=== PATIENT | male | born 1950 | race Caucasian/White ===

== ENCOUNTER → 2018-03-08 | Outpatient (REF) | payer OTHER ==
[2018-03-08 16:33] LABS: ALBUMIN/GLOBULIN RATIO 1.18 (1.00-1.93); ALKALINE PHOSPHATASE 75 U/L (45-117); ALT/SGPT 28 U/L (12-78); AST/SGOT 19 U/L (7-37); BILIRUBIN,DIRECT 0.1 MG/DL (0.0-0.2); BILIRUBIN,TOTAL 0.6 MG/DL (0.2-1.0); BLOOD UREA NITROGEN 12 MG/DL (7-18); CREATININE FOR GFR 0.87 MG/DL (0.70-1.30); GLOMERULAR FILTRATION RATE > 60.0 (>49); TOTAL PROTEIN 7.4 GM/DL (6.4-8.2)
== END ==
LOC: M LABDRAW1 12:22
DX: M48.061 Spinal stenosis, lumbar region without neurogenic claudication (principal)
CPT/HCPCS: 82565

== ENCOUNTER → 2018-09-30 | Outpatient (REF) | payer OTHER, MEDICARE ==
[~2018-09-30] MED LIST: /CELE20CA PO; CARI350T OR; LIDO5DIS EXT; TRAM50TA2 OR; hydrocodone PO
[2018-09-30 19:10] LABS: BLOOD UREA NITROGEN 14 MG/DL (7-18); CREATININE FOR GFR 0.94 MG/DL (0.70-1.30); GLOMERULAR FILTRATION RATE > 60.0 (>49)
== END ==
LOC: M LABDRAW1 17:19
PROVIDERS: ATTEND Physical Medicine & Rehabilitation
DX: M51.27 Other intervertebral disc displacement, lumbosacral region (principal)

== ENCOUNTER 2020-07-16 23:22 | Emergency (ER) | payer MEDICARE, OTHER ==
[~2020-07-16] VITALS: Ht 177.8 cm; Wt 102.0 kg
[~2020-07-16 23:22] MED LIST changes: -/CELE20CA PO; +CELE1CAP4 PO
[2020-07-16 23:26] VITALS: BP 137/73
[2020-07-16] MEDS ORDERED: PRAV40TA2 PO (23:38)
[2020-07-16] MEDS ORDERED: LISI-538 PO (23:38)
[2020-07-17] MEDS ORDERED: NS 1,000 ML IV ONE (00:15)
[2020-07-17 00:46] LABS: BASO % 0.3 % (0.0-1.0); EOS # 0.1 10^3/uL (0.0-0.5); EOS % 0.6 % (0.0-3.0); HEMATOCRIT 38.3 % (42.0-52.0); LYMPH # 1.1 10^3/uL (1.5-5.0); LYMPH % 12.2 % (24.0-44.0); MEAN CORPUSCULAR HEMOGLOBIN 31.3 pg (27.0-33.0); MEAN CORPUSCULAR HGB CONC 33.9 g/dl (32.0-36.5); MEAN CORPUSCULAR VOLUME 92.3 fl (80.0-96.0); MONO # 0.6 10^3/uL (0.0-0.8); MONO % 6.7 % (0.0-5.0); NEUTROPHILS % 79.2 % (36.0-66.0); PLATELET COUNT, AUTOMATED 183 10^3/uL (150-450); RED BLOOD COUNT 4.15 10^6/uL (4.30-6.10); WHITE BLOOD COUNT 8.9 10^3/uL (4.0-10.0)
[2020-07-17 01:03] LABS: ALBUMIN 3.5 GM/DL (3.2-5.2); ALT/SGPT 22 U/L (12-78); BILIRUBIN,DIRECT < 0.1 MG/DL (0.0-0.2); BILIRUBIN,TOTAL 0.2 MG/DL (0.2-1.0); BLOOD UREA NITROGEN 19 MG/DL (7-18); CALCIUM LEVEL 8.6 MG/DL (8.8-10.2); CARBON DIOXIDE LEVEL 25 MEQ/L (21-32); CHLORIDE LEVEL 103 MEQ/L (98-107); CPK CREATINE PHOSPHOKINASE 113 U/L (39-308); CREATININE FOR GFR 1.17 MG/DL (0.70-1.30); FREE THYROXINE INDEX 3.5 % (1.4-3.8); GLOMERULAR FILTRATION RATE > 60.0 (>49); GLUCOSE, FASTING 121 MG/DL (70-100); POTASSIUM SERUM 3.9 MEQ/L (3.5-5.1); SODIUM LEVEL 138 MEQ/L (136-145); T UPTAKE 38 % (33-40); THYROXINE (T4) 9.1 UG/DL (4.5-12.0); TOTAL PROTEIN 6.5 GM/DL (6.4-8.2)
--- NOTE | 2020-07-17 01:31 | REPVR ---
PROCEDURE INFORMATION: Exam: CT Head without Contrast Exam date and time: 07/17/20 (1:00am) Age: 70 years old Clinical indication: Altered mental status / memory loss. Confusion or disorientation. TECHNIQUE: Imaging protocol: Computed tomography of the head without contrast. Radiation optimization: All CT scans at this facility use at least one of these dose optimization techniques: automated exposure control; mA and/or kV adjustment per patient size (includes targeted exams where dose is matched to clinical indication); or iterative reconstruction. COMPARISON: No relevant prior studies available FINDINGS: Brain: Age-appropriate atrophic changes. No acute hemorrhage. No mass effect. Ventricles: Normal. No ventriculomegaly. Bones/joints: Unremarkable. No acute fracture. Sinuses: Visualized sinuses are unremarkable. No air-fluid levels. Mastoid air cells: Visualized mastoid air cells are well aerated. Soft tissues: Unremarkable. IMPRESSION: No acute intracranial pathology is appreciated. Electronically signed by: Violette De Guzman On 07/17/2020 01:30:38 AM
--- NOTE | 2020-07-29 13:42 | ECGEPIP ---
[facility] - ED Test Date: 2020-07-16 Pat Name: SRIKANTH LOPEZ Department: Room: - Gender: Male [employer] Sep[employer] Tender: CELINE : 1950 Requested By: ANDREAS BENSON Order Number: [id number] Reading MD: Chana Mccann Measurements Intervals Ozone Rate: 70 P: 45 MT: 167 QRS: 56 QRSD: 99 T: 54 QT: 405 QTc: 437 Interpretive Statements SINUS RHYTHM NORMAL ECG SEE SCANNED DOWNTIME REPORT
== END 2020-07-17 04:11 | disposition home or self-care (01) ==
LOC: M ED 23:22
DX: E86.0 Dehydration (principal); I10 Essential (primary) hypertension; G89.29 Other chronic pain; M54.9 Dorsalgia, unspecified; Z79.899 Other long term (current) drug therapy

== ENCOUNTER → 2021-09-10 | Outpatient (CLI) | payer MEDICARE, OTHER ==
[~2021-09-10] MED LIST changes: +LISI20TA33 PO; +PRAV40TA2 PO
== END ==
LOC: M LABSMTC 10:43
PROVIDERS: ATTEND Anesthesiology
DX: Z01.812 Encounter for preprocedural laboratory examination (principal); Z20.822 Contact with and (suspected) exposure to COVID-19

== ENCOUNTER 2021-09-15 07:57 | Day surgery (SDC) | payer MEDICARE ==
[~2021-09-15] VITALS: Ht 177.8 cm; Wt 101.7 kg
[~2021-09-15 07:57] MED LIST changes: +CYCLOPENTOLATE 1% OPHTH SOLN 2 ML BTL OD SCH; +DUOVISC (0.50ML VISCOAT/0.85ML PROVISC) OPHTH KIT As Ordered ONE; +FLURBIPROFEN 0.03% OPHTH SOLN 2.5 ML OD SCH; +LIDOCAINE 1% SDV 5ML VIAL As Ordered ONE; +LR 1,000 ML IV SCH; +MAXITROL OPHTH SUSP 5 ML As Ordered ONE; +MIDAZOLAM INJ 2MG/2ML VIAL (J2250 PER 1MG) As Ordered ONE; +PHENYLEPHRINE 2.5% OPHTH SOL 2ML OD SCH; +UNRESOLVED CLARIFICATION ENTRY XX SCH; +fentaNYL 100 MCG/2 ML INJECTION (J3010) As Ordered ONE
--- OUTSIDE RECORDS SUMMARY | 2021-09-15 08:01 | CCD ---
Author Author [facility] Organization [facility] Address Unknown Phone Unavailable Care Team Providers Care Manager Local Name Role Phone Sharon Lui Unavailable PROBLEMS Type Condition ICD9-CM Code [id number] Code Onset Dates Condition S tatus W/U Status Risk SNOMED Code Notes Problem Essential (primary) hypertension I10 Active conf irmed 61942514 Problem Mixed hyperlipidemia E78.2 Active confirmed 812714946 Problem Hypogonadism in male E29.1 Active confirmed 67838936 Problem Hyperlipidemia E78.5 Active confirmed 63065 004 Problem Erectile dysfunction, unspecified erectile dysfunction typ e N52.9 Active confirmed 271845946 Problem Obesity (BMI 30.0-34.9) E66.9 Active confirmed [id number] Problem Hypertension I10 Active confirmed 9456279 3 Problem History of prediabetes Z87.898 Active confirmed 183245676 Problem Essential hypertension I10 Active confirmed 81347107 Problem BMI 30.0-30.9,adult Z68.30 Active confirmed 691438456 Problem Lumbago with sciatica, right side M54.41 Active confirmed 601909301 Problem Pain in left shoulder M25.512 Active confirmed 65602028 Problem Other chronic pain G89.29 Active confirmed 8 7062201 Problem Personal history of other endocrine, nut ritional and metabolic disease Z86.39 Active confirmed 529293967 Problem Age-related nuclear cataract of right eye H25.11 Active confirmed 108332084 ALLERGIES No Known Allergies ENCOUNTERS from 1950 to 2021-08-28 Encounter Location Date Provider Diagnosis [address] [address] Aug, Sharon Lui Preoperative clearance Z01.8 18 ; Age-related nuclear cataract of right eye H25.11 ; Hypertension I10 ; History of prediabetes Z87.898 ; Mixed hyperlipidemia E78.2 ; Obesity (BMI 30.0-34.9) E66.9 and BMI 30.0- 30.9,adult Z68.30 IMMUNIZATIONS No Information SOCIAL HISTORY Tobacco Use: Social History Observation Description Date Details (start date - stop date) Never Smoker Sex Assigned At : Social History Observation Description Sex Assigned At Unknown Alcohol Screen Question Answer Notes Did you have a drink containing alcohol in the past year? Ye s Points 4 Interpretation Positive How often did you have 6 or more drinks on one occasio n in the past year? Never (0 points) How many drinks did you have on a typica l day when you were drinking in the past year? 1 or 2 (0 points) How often did you have a drink containing alcohol in t he past year? Four or more times a week (4 points) Tobacco Use/Smoking Question Answer Notes Are you a never smoker REASON FOR REFERRAL No Information VITAL SIGNS Height 72 in Aug, Weight 224 lbs Aug, BMI 30.38 kg/m2 Aug, Temperature 98.2 degrees Fahrenheit Aug, Heart Rate 73 /min Aug, Respiratory Rate 18 /min Aug, Oximetry 98 % Aug, Blood pressure systolic 116 mmHg Aug, Blood pressure diastolic 68 mmHg Aug, MEDICATIONS Medication SIG (Take, Route, Frequency, Duration) Notes Start Da te End Date Status Lisinopril 20 MG 1 tablet Orally Once a day for 90 Active Viagra 100 MG 1 tablet as needed Orally Once a day for 30 days prn Jan, Not-Taking Pravastatin Sodium 80 MG 1 tablet Orally Once a day for 90 days Apr, Active Pravastatin Sodium 40 MG 1 tablet Orally Once a day for 30 Not-Taking Shingrix 50 MCG/0.5ML as directed Intramuscular once every 6 0 days for 60 days Apr, Not-Taking PROCEDURES No Information RESULTS No Results REASON FOR VISIT Pre-op [place] appt for surgery with Dr. Lagos MEDICAL (GENERAL) HISTORY Type Description Date Medical History Ortho spine Dr. Arellano operat ed 2005, spinal surgery discectomy; no other operations Medical History HTN Medical History low back pain Medical History Hyperlipidemia Medical History Prediabetes Medical History Essential (primary) hypertension Surgical History back surgery- lumbar discectomy 2005 Surgical History Colonoscopy- normal 09/2014 Hospitalization History surgical needs Goals Section No Information Health Concerns No Information MEDICAL EQUIPMENT No Information MENTAL STATUS No Information FUNCTIONAL STATUS No Information ASSESSMENTS Encounter Date Diagnosis Assessment Notes Treatment Notes Treatm ent Clinical Notes Aug, Preoperative clearance (ICD-10 - Z01.818) Follow your surgeon's recommendations for food/drink avoidance prior to surgery - Make sure you have a wheelchair van driver available - Aspirin, Motrin, Ibuprofen, Motrin, Aleve and other NSAIDs must be stopped 7 days prior to surgery. If you are on a blood thinner follow additional recommendations regarding stopping or cross tapering with lovenox. - Take all your other medications normally unless otherwise directed (usually this applies to diabetic medications) - Do not wear any jewelry or other accessories (dentures, ect) to the surgery - Avoid tobacco for 12 hours prior to surgery. Patient has no complaints today, feeling well without fever, chills, or fatigue. Pt examination is normal today. Pt is advised to hold NSAID medication until after surgery. Pt denies any issues or concerns with previous surgeries, procedures, or anesthesia. Pt may proceed with planned procedure. No concerns at this time. EKG was completed and reviewed by [employer] Att[employer]. NSR. Aug, Age-related nuclear cataract of right eye (ICD-1 0 - H25.11) The patient has been scheduled for extracapsular cataract removal with insertion of intraocular lens implant of right eye by Dr. Lagos under local anesthesia on 09/15/2021. Aug, Hypertension (ICD-10 - I10) Blood pressure in the clinic today is at 116/68 mmHg. Continue to take medications as prescribed. Things that you can do at home to improve and maintain a healthy blood pressure: - Decrease salt intake - Increase water intake - Decrease alcohol and caffeine intake - Increase exercise - Weight loss. Monitor blood pressure at home. Go to ER if you notice chest pain, shortness of breath, left arm pain, jaw pain, nausea, or vomiting Aug, History of prediabetes (ICD-10 - Z87.898) Things that you can do at home to improve glycemic control (improve blood sugars) 1. Avoid foods with added sugars (read nutrition labels) 2. Avoid foods high in carbohydrates (bread, pasta, rice, sugar, sweets, processed foods) 3. Increase physical activity 4. Avoid snacking/eating between meals 5. Avoid sugary beverages like fruit juice, soda, alcohol A1c was 5.5 and EAG was 111.2 on 04/19/2021. Aug, Mixed hyperlipidemia (ICD-10 - E78.2) Advised to continue with the current medication regimen. Things that you can do at home to help control cholesterol: - Decrease unhealthy fats (walters, butter, meat) - Increase activity - Lose weight Aug, Obesity (BMI 30.0-34.9) (ICD-10 - E66.9) Recommend increasing low impact activity (walking, swimming, yoga), weight loss and diet including portion control, avoidance of high glycemic index foods like white bread, white pasta, white rice, white sugar and avoidance of fatty foods like butter, fried foods, steak/ground beef, full fat dairy products. Avoid sugary beverages like fruit juice, soda and alcohol. Consume lean protein including fish, chicken and healthy fats like avocado, nuts and olive oil. Check food labels and avoid foods high in salt especially prepackaged meals. Try to eat structured meals throughout the day, ensuring obtaining macronutrients at each meal (proteins, fats, carbohydrates). [place] [employer] recommends at least 120 minutes of aerobic activity per week. This can include any heart raising activity and does not need to be done all at once Aug, BMI 30.0-30.9,adult (ICD-10 - Z68.30) As above Aug, Other All questions an d concerns addressed, patient understanding and agreeable to plan. Patient encouraged to follow up at the clinic for any additional or new questions or concerns. Time spent includes face to face time with patient and review of any pertinent laboratory results, consult documentation/hospital notes and diagnostic imaging. Time spent: 15 mins Marizol Crespo, scribing the following service on behalf of Sharon Lui NP on 08/24/2021. PLAN OF TREATMENT Treatment Notes Assessment Notes Clinical Notes Preoperative clearance Follow your surgeon's recomm endations for food/drink avoidance prior to surgery - Make sure you have a wheelchair van driver available - Aspirin, Motrin, Ibuprofen, Motrin, Aleve and other NSAIDs must be stopped 7 days prior to surgery. If you are on a blood thinner follow additional recommendations regarding stopping or cross tapering with lovenox. - Take all your other medications normally unless otherwise directed (usually this applies to diabetic medications) - Do not wear any jewelry or other accessories (dentures, ect) to the surgery - Avoid tobacco for 12 hours prior to surgery. Patient has no complaints today, feeling well without fever, chills, or fatigue.Pt examination is normal today.Pt is advised to hold NSAID medication until after surgery.Pt denies any issues or concerns with previous surgeries, procedures, or anesthesia.Pt may proceed with planned procedure. No concerns at this time.EKG was completed and reviewed by [employer] Att[employer]. NSR. Age-related nuclear cataract of right eye The patient has been scheduled for extracapsular cataract removal with insertion of intraocular lens implant of right eye by Dr. Lagos under local anesthesia on 09/15/2021. Hypertension Blood pressure in the clinic today is at 116/68 mmHg. Continue to take medications as prescribed. Things that you can do at home to improve and maintain a healthy blood pressure:- Decrease salt intake- Increase water intake- Decrease alcohol and caffeine intake- Increase exercise- Weight loss. Monitor blood pressure at home. Go to ER if you notice chest pain, shortness of breath, left arm pain, jaw pain, nausea, or vomiting History of prediabetes Things that you can do at me to improve glycemic control (improve blood sugars) 1. Avoid foods with added sugars (read nutrition labels) 2. Avoid foods high in carbohydrates (bread, pasta, rice, sugar, sweets, processed foods) 3. Increase physical activity 4. Avoid snacking/eating between meals 5. Avoid sugary beverages like fruit juice, soda, alcohol A1c was 5.5 and EAG was 111.2 on 04/19/2021. Mixed hyperlipidemia Advised to continue with the current medication regimen. Things that you can do at home to help control cholesterol:- Decrease unhealthy fats (walters, butter, meat)- Increase activity- Lose weight Obesity (BMI 30.0-34.9) Recommend increasing low imp act activity (walking, swimming, yoga), weight loss and diet including portion control, avoidance of high glycemic index foods like white bread, white pasta, white rice, white sugar and avoidance of fatty foods like butter, fried foods, steak/ground beef, full fat dairy products. Avoid sugary beverages like fruit juice, soda and alcohol. Consume lean protein including fish, chicken and healthy fats like avocado, nuts and olive oil. Check food labels and avoid foods high in salt especially prepackaged meals. Try to eat structured meals throughout the day, ensuring obtaining macronutrients at each meal (proteins, fats, carbohydrates). [place] [employer] recommends at least 120 minutes of aerobic activity per week. This can include any heart raising activity and does not need to be done all at once BMI 30.0-30.9,adult As above Next Appt Details 2 months as scheduled Reason: Provider Name:Sharon Lui, 2021-10-0 1 01:50:00 PM, [address] [place] [address], [phone], Insurance Providers Payer Name Payer Address Payer Phone Insured Name Patient Relati onship to Insured Coverage Start Date Coverage End Date [employer] - [employer] [facility] [address] [address] [facility] [id number] [phone] SRIKANTH LOPEZ self
--- OUTSIDE RECORDS SUMMARY | 2021-09-15 08:01 | CCD ---
Author Author [facility] Organization [facility] Address Unknown Phone Unavailable Care Team Providers Care Java Lead Name Role Phone Sharon Lui Unavailable PROBLEMS Type Condition ICD9-CM Code [id number] Code Onset Dates Condition S tatus W/U Status Risk SNOMED Code Notes Problem Hypogonadism in male E29.1 Active confirmed 43021907 Problem Lumbago with sciatica, right side M54.41 Active confirmed 850467410 Problem Essential hypertension I10 Active confirmed 46324512 Problem Mixed hyperlipidemia E78.2 Active confirmed 644216098 Problem Other chronic pain G89.29 Active confirmed 8 3342829 Problem Hyperlipidemia E78.5 Active confirmed 61771 004 Problem Personal history of other endocrine, nut ritional and metabolic disease Z86.39 Active confirmed 656518957 Problem Essential (primary) hypertension I10 Active conf irmed 89779785 Problem Erectile dysfunction, unspecified erectile dysfunction typ e N52.9 Active confirmed 437451647 Problem Obesity (BMI 30.0-34.9) E66.9 Active confirmed 515108979676000 Problem Hypertension I10 Active confirmed 3420216 3 Problem Pain in left shoulder M25.512 Active confirmed 06098232 ALLERGIES No Known Allergies ENCOUNTERS from 1950 to 2021-08-10 Encounter Location Date Provider Diagnosis [address] [address] Jul, Sharon Lui Pre-operative exam Z01.818 IMMUNIZATIONS No Information SOCIAL HISTORY Tobacco Use: [...] REASON FOR REFERRAL No Information VITAL SIGNS No information MEDICATIONS Medication SIG (Take, Route, Frequency, Duration) Notes Start Da te End Date Status Shingrix 50 MCG/0.5ML as directed Intramuscular once every 6 0 days for 60 days Apr, Active Pravastatin Sodium 40 MG 1 tablet Orally Once a day for 30 Active Viagra 100 MG 1 tablet as needed Orally Once a day for 30 days prn Jan, Not-Taking Pravastatin Sodium 80 MG 1 tablet Orally Once a day for 90 days Apr, Active Lisinopril 20 MG 1 tablet Orally Once a day for 90 Active PROCEDURES No Information RESULTS No Results REASON FOR VISIT Preop MEDICAL (GENERAL) HISTORY Type Description Date Medical History Ortho spine Dr. Arellano operat ed 2006, spinal surgery discectomy; no other operations Medical [...] Notes Treatment Notes Treatm ent Clinical Notes Jul, Pre-operative exam (ICD-10 - Z01.818) PLAN OF TREATMENT Medication Medication Name Sig Start Date Stop Date Shingrix 50 MCG/0.5ML as directed Intramuscular once every 6 0 days for 60 days Apr, Pravastatin Sodium 80 MG 1 tablet Orally Once a day for 90 days Apr, Treatment Notes Test Name Order Date Electrocardiogram [facility] (EKG) 2021-08-10 Next Appt Details Provider Name:Sharon Lui, 6 10:30:00 AM, [address] [place] [address], [phone], Provider Name:Sharon Lui 1 01:50:00 PM, [address] [place] [address], [phone], Insurance Providers Payer Name Payer Address Payer Phone Insured Name Patient Relati onship to Insured Coverage Start Date Coverage End Date [facility] [address] [address] [facility] [id number] [phone] SRIKANTH LOPEZ self
--- OUTSIDE RECORDS SUMMARY | 2021-09-15 08:01 | CCD ---
Author Author [facility] Organization [facility] Address Unknown Phone Unavailable Care Team Providers Care Clinical Trial Coordinator Name Role Phone Hu, L Sharon DENTAL OFFICE ASSISTANT Unavailable Unavailable Haines, L Sharon DENTAL OFFICE ASSISTANT Unavailable Unavailable Haines, L Sharon DENTAL OFFICE ASSISTANT Unavailable Unavailable Haines, L Sharon DENTAL OFFICE ASSISTANT Unavailable Unavailable Haines, L Sharon DENTAL OFFICE ASSISTANT Unavailable Unavailable Hu, L Sharon DENTAL OFFICE ASSISTANT Unavailable Unavailable Hu, L Sharon DENTAL OFFICE ASSISTANT Unavailable Unavailable Hu, L Sharon DENTAL OFFICE ASSISTANT Unavailable Unavailable Hu, L Sharon DENTAL OFFICE ASSISTANT Unavailable Unavailable Haines, L Sharon DENTAL OFFICE ASSISTANT Unavailable Unavailable Haines, L Sharon DENTAL OFFICE ASSISTANT Unavailable Unavailable Haines, L Sharon DENTAL OFFICE ASSISTANT Unavailable Unavailable Haines, L Sharon DENTAL OFFICE ASSISTANT Unavailable Unavailable Hu, L Sharon DENTAL OFFICE ASSISTANT Unavailable Unavailable Hu, L Sharon DENTAL OFFICE ASSISTANT Unavailable Unavailable Haines, L Sharon DENTAL OFFICE ASSISTANT Unavailable Unavailable Haines, L Sharon DENTAL OFFICE ASSISTANT Unavailable Unavailable Haines, L Sharon DENTAL OFFICE ASSISTANT Unavailable Unavailable Hu, L Sharon DENTAL OFFICE ASSISTANT Unavailable Unavailable Haines, L Sharon DENTAL OFFICE ASSISTANT Unavailable Unavailable Hu, L Sharon DENTAL OFFICE ASSISTANT Unavailable Unavailable Haines, L Sharon DENTAL OFFICE ASSISTANT Unavailable Unavailable Hu, L Sharon DENTAL OFFICE ASSISTANT Unavailable Unavailable Hu, L Sharon DENTAL OFFICE ASSISTANT Unavailable Unavailable Hu, L Sharon DENTAL OFFICE ASSISTANT Unavailable Unavailable Hu, L Sharon DENTAL OFFICE ASSISTANT Unavailable Unavailable Haines, L Sharon DENTAL OFFICE ASSISTANT Unavailable Unavailable Haines, L Sharon DENTAL OFFICE ASSISTANT Unavailable Unavailable Hu, L Sharon DENTAL OFFICE ASSISTANT Unavailable Unavailable Haines, L Sharon DENTAL OFFICE ASSISTANT Unavailable Unavailable Hu, L Sharon DENTAL OFFICE ASSISTANT Unavailable Unavailable Hu, L Sharon DENTAL OFFICE ASSISTANT Unavailable Unavailable Hu, L Sharon DENTAL OFFICE ASSISTANT Unavailable Unavailable Haines, L Sharon DENTAL OFFICE ASSISTANT Unavailable Unavailable Haines, L Sharon DENTAL OFFICE ASSISTANT Unavailable Unavailable Hu, L Sharon DENTAL OFFICE ASSISTANT Unavailable Unavailable Hu, L Sharon DENTAL OFFICE ASSISTANT Unavailable Unavailable Haines, L Sharon DENTAL OFFICE ASSISTANT Unavailable Unavailable Haines, L Sharon DENTAL OFFICE ASSISTANT Unavailable Unavailable Dombek-Francis Sandoval MD Unavailable Unavailable Dombek-Lang, Francis Murray MD Unavailable Unavailable Dombek-Lang, Francis Murray MD Unavailable Unavailable Dombek-Lang, Francis Murray MD Unavailable Unavailable Dombek-Lang, Francis Murray MD Unavailable Unavailable Dombek-Lang, Francis Murray MD Unavailable Unavailable Dombek-LangFrancis MD Unavailable Unavailable Dombek-LangFrancis MD Unavailable Unavailable Baironbek-LangFrancis MD Unavailable Unavailable Dombek-Francis Sandoval MD Unavailable Unavailable Dombek-Franics Sandoval MD Unavailable Unavailable Dombek-LangFrancis MD Unavailable Unavailable Dombek-Francis Sandoval MD Unavailable Unavailable BaironbekFrancis Hendrix MD Unavailable Unavailable Dombek-Francis Sandoval MD Unavailable Unavailable Baironbek-Francis Sandoval MD Unavailable Unavailable Dombek-Francis Sandoval MD Unavailable Unavailable Baironbek-Francis Sandoval MD Unavailable Unavailable BaironbekFrancis Hendrix MD Unavailable Unavailable Dombek-Francis Sandoval MD Unavailable Unavailable Baironbek-Francis Sandoval MD Unavailable Unavailable Dombek-LangFrancis MD Unavailable Unavailable Dombek-LangFrancis MD Unavailable Unavailable Dombek-Francis Sandoval MD Unavailable Unavailable Dombek-Francis Sandoval MD Unavailable Unavailable Dombek-Francis Sandoval MD Unavailable Unavailable Dombek-LangFrancis MD Unavailable Unavailable Dombek-LangFrancis MD Unavailable Unavailable Dombek-LangFrancis MD Unavailable Unavailable Dombek-LangFrancis MD Unavailable Unavailable Dombek-LangFrancis MD Unavailable Unavailable Dombek-Lang, V Terri MD Unavailable Unavailable Francis Brand MD Unavailable Unavailable Francis Brand MD Unavailable Unavailable Francis Brand MD Unavailable Unavailable Francis Brand MD Unavailable Unavailable Francis Brand MD Unavailable Unavailable Francis Brand MD Unavailable Unavailable Francis Brand MD Unavailable Unavailable CHAS SMITH MD Unavailable Unavailable CHAS SMITH MD Unavailable Unavailable CHAS SMITH MD Unavailable Unavailable CHAS SMITH MD Unavailable Unavailable CHAS SMITH MD Unavailable Unavailable CHAS SMITH MD Unavailable Unavailable CHAS SMITH MD Unavailable Unavailable CHAS SMITH MD Unavailable Unavailable CHAS SMITH MD Unavailable Unavailable CHAS SMITH MD Unavailable Unavailable CHAS SMITH MD Unavailable Unavailable CHAS SMITH MD Unavailable Unavailable CHAS SMITH MD Unavailable Unavailable CHAS SMITH MD Unavailable Unavailable CHAS SMITH MD Unavailable Unavailable CHAS SMITH MD Unavailable Unavailable CHAS SMITH MD Unavailable Unavailable CHAS SMITH MD Unavailable Unavailable CHAS SMITH MD Unavailable Unavailable CHAS SMITH MD Unavailable Unavailable CHAS SMITH MD Unavailable Unavailable CHAS SMITH MD Unavailable Unavailable CHAS SMITH MD Unavailable Unavailable CHAS SMITH MD Unavailable Unavailable CHAS SMITH MD Unavailable Unavailable CHAS SMITH MD Unavailable Unavailable CHAS SMITH MD Unavailable Unavailable CHAS SMITH MD Unavailable Unavailable CHAS SMITH MD Unavailable Unavailable CHAS SMITH MD Unavailable Unavailable CHAS SMTIH MD Unavailable Unavailable CHAS SMITH MD Unavailable Unavailable CHAS SMITH MD Unavailable Unavailable SYMENOW, G CHRISTOPHER PA Unavailable Unavailable SYMENOW, G CHRISTOPHER PA Unavailable Unavailable SYMENOW, G CHRISTOPHER PA Unavailable Unavailable SYMENOW, G CHRISTOPHER PA Unavailable Unavailable SYMENOW, G CHRISTOPHER PA Unavailable Unavailable SYMENOW, G CHRISTOPHER PA Unavailable Unavailable SYMENOW, G CHRISTOPHER PA Unavailable Unavailable SYMENOW, G CHRISTOPHER PA Unavailable Unavailable SYMENOW, G CHRISTOPHER PA Unavailable Unavailable SYMENOW, G CHRISTOPHER PA Unavailable Unavailable SYMENOW, G CHRISTOPHER PA Unavailable Unavailable SYMENOW, G CHRISTOPHER PA Unavailable Unavailable SYMENOW, G CHRISTOPHER PA Unavailable Unavailable SYMENOW, G CHRISTOPHER PA Unavailable Unavailable SYMENOW, G CHRISTOPHER PA Unavailable Unavailable SYMENOW, G CHRISTOPHER PA Unavailable Unavailable JALEESA, L JARROD PA Unavailable Unavailable JALEESA, L JARROD PA Unavailable Unavailable JALEESA, L JARROD PA Unavailable Unavailable JALEESA, L JARROD PA Unavailable Unavailable JALEESA, L JARROD PA Unavailable Unavailable JALEESA, L JARROD PA Unavailable Unavailable JALEESA, L JARROD PA Unavailable Unavailable JALEESA, L JARROD PA Unavailable Unavailable JALEESA, L JARROD PA Unavailable Unavailable JALEESA, L JARROD PA Unavailable Unavailable JALEESA, L JARROD PA Unavailable Unavailable JALEESA, L JARROD PA Unavailable Unavailable JALEESA, L JARROD PA Unavailable Unavailable JALEESA, L JARROD PA Unavailable Unavailable JALEESA, L JARROD PA Unavailable Unavailable JALEESA, L JARROD PA Unavailable Unavailable JALEESA, L JARROD PA Unavailable Unavailable JALEESA, L JARROD PA Unavailable Unavailable JALEESA, L JARROD PA Unavailable Unavailable JALEESA, L JARROD PA Unavailable Unavailable JALEESA, L JARROD PA Unavailable Unavailable JALEESA, L JARROD PA Unavailable Unavailable CADENCE, A PRUDENCIO DO Unavailable Unavailable CADENCE, A PRUDENCIO DO Unavailable Unavailable CADENCE, A PRUDENCIO DO Unavailable Unavailable CADENCE, A PRUDENCIO DO Unavailable Unavailable CADENCE, A PRUDENCIO DO Unavailable Unavailable CADENCE, A PRUDENCIO DO Unavailable Unavailable CADENCE, A PRUDENCIO DO Unavailable Unavailable CADENCE, A PRUDENCIO DO Unavailable Unavailable CADENCE, A PRUDENCIO DO Unavailable Unavailable CADENCE, A PRUDENCIO DO Unavailable Unavailable CADENCE, A PRUDENCIO DO Unavailable Unavailable CADENCE, A PRUDENCIO DO Unavailable Unavailable CADENCE, A PRUDENCIO DO Unavailable Unavailable CADENCE, A PRUDENCIO DO Unavailable Unavailable CADENCE, A PRUDENCIO DO Unavailable Unavailable CADENCE, A PRUDENCIO DO Unavailable Unavailable CADENCE, A PRUDENCIO DO Unavailable Unavailable CADENCE, A PRUDENCIO DO Unavailable Unavailable CADENCE, A PRUDENCIO DO Unavailable Unavailable CADENCE, A PRUDENCIO DO Unavailable Unavailable CADENCE, A PRUDENCIO DO Unavailable Unavailable ACDENCE, A PRUDENCIO DO Unavailable Unavailable Re-disclosure Warning The records that you are about to access may contain information from federally-assisted alcohol or drug abuse programs. If such information is present, then the following federally mandated warning applies: This information has been disclosed to you from records protected by federal confidentiality rules (42 CFR part 2). The federal rules prohibit you from making any further disclosure of this information unless further disclosure is expressly permitted by the written consent of the person to whom it pertains or as otherwise permitted by 42 CFR part 2. A general authorization for the release of medical or other information is NOT sufficient for this purpose. The Federal rules restrict any use of the information to criminally investigate or prosecute any alcohol or drug abuse patient.The records that you are about to access may contain highly sensitive health information, the redisclosure of which is protected by Article 27-F of the [facility] Public Health law. If you continue you may have access to information: Regarding HIV / AIDS; Provided by facilities licensed or operated by the [facility] Office of Mental Health; or Provided by the [facility] Office for People With Developmental Disabilities. If such information is present, then the following [facility] mandated warning applies: This information has been disclosed to you from confidential records which are protected by state law. State law prohibits you from making any further disclosure of this information without the specific written consent of the person to whom it pertains, or as otherwise permitted by law. Any unauthorized further disclosure in violation of state law may result in a fine or half-way sentence or both. A general authorization for the release of medical or other information is NOT sufficient authorization for further disc losure. Allergies and Adverse Reactions Type Description Substance Reaction Status Data Source(s ) Allergy to substance No Known Allergies No known allergies (situation ) [place] (Terrell Celis MD [facility]) Family History Family Member Name Family Member Gender Family Member Status Date o f Status Description Data Source(s) Unknown Female Problem MEDENT ([facility]) Encounters Encounter Providers Location Date Indications Data Source(s ) Outpatient Attender: Sharon SCHMID 08/24/2021 10:22:00 AM EDT [facility] 08/24/2021 12:00:00 AM EDT eCW1 ([facility]) Outpatient Attender: Sharon SCHMID 08/22/2021 10:50:00 AM EDT [facility] 08/10/2021 12:00:00 AM EDT eCW1 ([facility]) <td ID="encounterTypeDescriptionID0">NEW PATIENT WITH REFERRAL</td><td>Prudencio Cadence DO</td><td>Terrell Ramos MD [facility]</td><td>05/26/2021</td><td>12:15PM</td><td>2:01PM</td><td><content ID="encounterDiagnosisID0-0">Dry Eye Syndrome</content>, <content ID="encounterDiagnosisID0-1">Blepharitis</content>, <content ID="encounterDiagnosisID0-2">Cataract Senile Nuclear</content>, <content ID="encounterDiagnosisID0-3">Vitreous Disorders Degeneration</content>, <content ID="encounterDiagnosisID0-4">Macular Degeneration Nonexudative Bilateral Early Dry Stage</content></td>Outpatient Attender: PRUDENCIO Villa MD [facility] 05/26/2021 12:15:00 PM EDT - 05/26/2021 02:01:00 PM ED T Macular Degeneration Nonexudative Bilateral Early Dry StageVitreous Disorders DegenerationCataract Senile NuclearBlepharitisDry Eye Syndrome [place] (Terrell Celis MD [facility]) Macular Degeneration Nonexudative Bilate ral Early Dry Stage Vitreous Disorders Degeneration Cataract Senile Nuclear Blepharitis Dry Eye Syndrome Outpatient Attender: Sharon Lui RNPReferrer: Brandon SCHMID EMERGENCY ROOM-LAB 04/19/2021 09:49:00 AM EDT - 04/19/2021 09:49:00 AM [facility] Outpatient Attender: Sharon SCHMID 04/19/2021 08:57:00 AM [facility] 04/19/2021 12:00:00 AM EDT eCW1 ([facility]) [facility]patient [facility] 04/19/2021 12:00:00 AM EDT eCW1 ([facility]) Outpatient Attender: CHAS SMITH MD Physical Therapy 08:00:00 AM EST MEDENT ([facility]) [facility] 07/23/2020 12:00:00 AM EDT eCW1 ([facility]) Outpatient Attender: JARROD SEWELL 07/09/2020 08:45:00 AM [facility] Emergency Attender: URSULA SEWELL 11/05/2017 11:40:00 AM EST - 11/05/2017 12:38:00 PM [facility] Outpatient Attender: Terri Brand MD 05/18/2016 09:4 7:00 AM [facility] Immunizations Vaccine Date Status Description Data Source(s) COVID-19 VACCINE Moderna 02/21/2021 12:00:00 AM EDT completed [facility] Vacc[facility] Series Complete: YESThis Data wa s Submitted to [facility] Via [employer] [facility]. COVID-19 VACCINE Moderna 01/21/2021 12:00:00 AM EST completed [facility] Vaccine Series Complete: NOThis Data was Submitted to [facility] [facility]. Medications Medication Brand Name Start Date Product Form Dose Route Admi nistrative Instructions Pharmacy Instructions Status Indications Reaction Description Data Source(s) 0.5 % 08/25/2021 12:00:00 AM EDT drops 5 INSTILL ONE DROP FOUR TIMES A DAY START 3 DAYS PRIOR TO SURGERY INSTILL ONE DROP FOUR TIMES A DAY START 3 DAYS PRIOR TO SURGERY SOLD: 08/29/2021 [facility] Polymyxin B 17707 UNT/ML / Trimethoprim 1 MG/ML Ophthalmic Solution 10,000 unit- 1 mg/mL POLYMYXIN B SULF/TRIMETHOPRIM 08/25/2021 12:00:00 AM EDT drops 1 0 INSTILL ONE DROP FOUR TIMES A DAY IN THE RIGHT EYE START 3 DAYS PRIOR TO SURGERY INSTILL ONE DROP FOUR TIMES A DAY IN THE RIGHT EYE START 3 DAYS PRIOR TO SURGERY SOLD: 08/29/2021 [facility] 1 % 08/25/2021 12:00:00 AM EDT drops,suspension 10 INSTILL ONE DROP IN THE RIGHT EYE FOUR TIMES A DAY START AFTER SURGERY INSTILL ONE DROP IN THE RIGHT EYE FOUR TIMES A DAY START AFTER SURGERY SOLD: 08/29/2021 [facility] Lisinopril 20 MG Oral Tablet Lisinopril 20 MG Oral Tablet 12:00:00 AM EDT 1 active lisinopril 20 MG Oral Tablet MARV (Terrell Celis MD [facility]) Pravastatin Sodium 80 MG Oral Tablet Pravastatin Sodium 80 M G Oral Tablet 05/26/2021 12:00:00 AM EDT 1 active pravastatin sodium 80 MG Oral Tablet MARV (Terrell Celis MD [facility]) 80 mg 04/26/2021 12:00:00 AM EDT tablet 90 TAKE ONE TABLET BY MOUTH EVERY DAY TAKE ONE TABLET BY MOUTH EVERY DAY SOLD: 04/27/2021 [facility] Pravastatin Sodium 80 MG Oral Tablet Pravastatin Sodium 80 M G 04/26/2021 12:00:00 AM EDT 1.0 {tablet} active Pr avastatin Sodium 80 MG eCW1 ([facility]) Pravastatin Sodium 80 MG Oral Tablet Pravastatin Sodium 80 M G 04/26/2021 12:00:00 AM EDT 1.0 {tablet} active Pr avastatin Sodium 80 MG eCW1 ([facility]) Pravastatin Sodium 80 MG Oral Tablet Pravastatin Sodium 80 M G 04/26/2021 12:00:00 AM EDT 1.0 {tablet} active Pr avastatin Sodium 80 MG eCW1 ([facility]) Pravastatin Sodium 80 MG Oral Tablet Pravastatin Sodium 80 M G 04/26/2021 12:00:00 AM EDT 1.0 {tablet} active Pr avastatin Sodium 80 MG eCW1 ([facility]) Shingrix 50 MCG/0.5ML Shingrix 50 MCG/0.5ML 04/19/2021 12:00:00 AM EDT active Shingrix 50 MCG/0.5ML eCW1 ( [facility]) Shingrix 50 MCG/0.5ML Shingrix 50 MCG/0.5ML 04/19/2021 12:00:00 AM EDT active Shingrix 50 MCG/0.5ML eCW1 ( [facility]) Shingrix 50 MCG/0.5ML Shingrix 50 MCG/0.5ML 04/19/2021 12:00:00 AM EDT active Shingrix 50 MCG/0.5ML eCW1 ( [facility]) Shingrix 50 MCG/0.5ML Shingrix 50 MCG/0.5ML 04/19/2021 12:00:00 AM EDT suspended Shingrix 50 MCG/0.5ML eCW1 ( [facility]) 20 mg 01/17/2021 12:00:00 AM EST tablet 30 TAKE ONE TABLET BY MOUTH EVERY DAY TAKE ONE TABLET BY MOUTH EVERY DAY SOLD: 07/27/2021 [facility] 20 mg 01/17/2021 12:00:00 AM EST tablet 30 TAKE ONE TABLET BY MOUTH EVERY DAY TAKE ONE TABLET BY MOUTH EVERY DAY SOLD: 08/29/2021 [facility] Lisinopril 20 MG Oral Tablet LISINOPRIL 01/17/2021 12:00:00 AM EST tab let 30 TAKE ONE TABLET BY MOUTH EVERY DAY TAKE ONE TABLET BY MOUTH EVERY DAY SOLD: 03/12/2021 [facility] 20 mg 01/17/2021 12:00:00 AM EST tablet 30 TAKE ONE TABLET BY MOUTH EVERY DAY TAKE ONE TABLET BY MOUTH EVERY DAY SOLD: 05/25/2021 [facility] Lisinopril 20 MG Oral Tablet LISINOPRIL 01/17/2021 12:00:00 AM EST tab let 30 TAKE ONE TABLET BY MOUTH EVERY DAY TAKE ONE TABLET BY MOUTH EVERY DAY SOLD: 04/27/2021 [facility] 20 mg 01/17/2021 12:00:00 AM EST tablet 30 TAKE ONE TABLET BY MOUTH EVERY DAY TAKE ONE TABLET BY MOUTH EVERY DAY SOLD: 06/24/2021 [facility] 20 mg 01/17/2021 12:00:00 AM EST tablet 30 TAKE ONE TABLET BY MOUTH EVERY DAY TAKE ONE TABLET BY MOUTH EVERY DAY SOLD: 01/21/2021 [facility] 40 mg 12/18/2020 12:00:00 AM EST tablet 30 TAKE ONE TABLET BY MOUTH EVERY DAY TAKE ONE TABLET BY MOUTH EVERY DAY SOLD: 01/21/2021 [facility] 40 mg 12/18/2020 12:00:00 AM EST tablet 30 TAKE ONE TABLET BY MOUTH EVERY DAY TAKE ONE TABLET BY MOUTH EVERY DAY SOLD: 12/22/2020 [facility] 40 mg 07/06/2020 12:00:00 AM EDT tablet 30 TAKE ONE TABLET BY MOUTH EVERY DAY TAKE ONE TABLET BY MOUTH EVERY DAY SOLD: 12/04/2020 [facility] 40 mg 07/06/2020 12:00:00 AM EDT tablet 30 TAKE ONE TABLET BY MOUTH EVERY DAY TAKE ONE TABLET BY MOUTH EVERY DAY SOLD: 08/21/2020 [facility] 40 mg 07/06/2020 12:00:00 AM EDT tablet 30 TAKE ONE TABLET BY MOUTH EVERY DAY TAKE ONE TABLET BY MOUTH EVERY DAY SOLD: 10/23/2020 [facility] 20 mg 01/14/2020 12:00:00 AM EST tablet 90 TAKE ONE TABLET BY MOUTH EVERY DAY TAKE ONE TABLET BY MOUTH EVERY DAY SOLD: 07/31/2020 [facility] 20 mg 01/14/2020 12:00:00 AM EST tablet 90 TAKE ONE TABLET BY MOUTH EVERY DAY TAKE ONE TABLET BY MOUTH EVERY DAY SOLD: 10/23/2020 [facility] Insurance Providers Payer name Policy type / Coverage type Policy ID Covered democrat ID Covered democrat's relationship to dawn Policy Dawn Plan Information [facility] () Workers Compensation [id number] Self [id number] [facility] () Workers Compensation [id number] Self [id number] [facility] [id number] SP [id number] [facility] () Workers Compensation [id number] Self [facility] () Workers Compensation [id number] Self [id number] [facility] () Workers Compensation [id number] Self [id number] [facility] () Workers Compensation [id number] Self [id number] [id number] SP [id number] [facility] () Workers Compensation [id number] Self [id number] [facility] () Workers Compensation [id number] Self [id number] [facility] () Workers Compensation [id number] Self [id number] [employer] Workers Compensation [id number] Self [id number] [employer] ([place]) Workers Compensation [id number] Self [id number] [facility] [id number] SP [id number] [employer] [facility] [id number] S [id number] [facility] [employer] [id number] Self V [id number] [facility] [employer] [id number] Self V [id number] [facility] [employer] [id number] Self V [id number] [facility] [id number] S [id number] Medicare [place] Med[place] Part B [id number] Self [id number] Medicare [place] Med[place]ap Part B [id number] Self [id number] MEDICARE BLUE PPO 306 [id number] SP [id number] MEDICARE BLUE PPO [id number] SP [id number] MEDICARE BLUE PPO 306 [id number] SP [id number] [employer] [facility] [id number] S [id number] [employer] B [id number] S [id number] [facility] O [id number] S [id number] MEDICAID [id number] S [id number] Medicare Part B [facility] Other 0 [id number] Self 0 [facility] [id number] S [id number] [facility] MEDICAID [facility] HMO [id number] S [id number] BCBS [facility] Other 0 [id number] Se lf 0 CCMSI WC [id number] SP [id number] [employer] [facility] [id number] S [id number] [employer]NAGEMENT O [id number] S [id number] [employer] WC [id number] S [phone] [employer] WC [id number] S [id number] SELF PAY SP [id number] S [id number] SELF PAY SP UNAVAILABLE S UNAVAILA BLE Medicare [place] Med[place]ap Part B [id number] Self [id number] Problems, Conditions, and Diagnoses Code Display Name Description Problem Type Effective Dates Data Source(s) Z01.818 Encounter for other preprocedural examin ation ENCOUNTER FOR OTHER PREPROCEDURAL EXAMINATION Diagnosis 08/22/2021 10:50:00 AM [facility] ospital Z86.39 Personal history of other endocrine, nut ritional and metabolic disease PERSONAL HISTORY OF ENDO, NUTRITIONAL AND METABOLI Diagnosis 11/2020 08:57:00 AM [facility] Z01.00 Encounter for examination of eyes and vi larisa without abnormal findings ENCOUNTER FOR EXAM OF EYES AND VISION W/O ABNORMAL Diagnosis 11/2020 08:57:00 AM [facility] Z71.89 Other specified counseling OTHER SPECIFIED COUNSELING Diagnosis 04/19/2021 08:57:00 AM [facility] Z23 Encounter for immunization ENCOUNTER FOR IMMUNIZATION Diagnosis 04/19/2021 08:57:00 AM [facility] R63.4 Abnormal weight loss ABNORMAL WEIGHT LOSS Diagnosis 04/19/2021 08:57:00 AM [facility] E66.9 Obesity, unspecified OBESITY, UNSPECIFIED Diagnosis 04/19/2021 08:57:00 AM [facility] M25.512 Pain in left shoulder PAIN IN LEFT SHOULDER Diagnosis 04/19/2021 08:57:00 AM [facility] I10 Essential (primary) hypertension ESSENTIAL (PRIMARY) H YPERTENSION Diagnosis 04/19/2021 08:57:00 AM [facility] E78.2 Mixed hyperlipidemia MIXED HYPERLIPIDEMIA Diagnosis 04/19/2021 08:57:00 AM [facility] Z00.00 Encounter for general adult medical examination without abnormal findings ENCNTR FOR GENERAL ADULT MEDICAL EXAM W/O ABNORMAL FINDINGS Diagnosis 04/19/2021 08:57:00 AM [facility] H25.11 [id number] Age-related nuclear cataract of right eye Problem 08/24/2021 12:00:00 AM EDT eCW1 ([facility]) Z68.30 [id number] BMI 30.0-30.9,adult Problem 08/24/2021 12:00 :00 AM EDT eCW1 ([facility]) Z87.898 [id number] History of prediabetes Problem 08/24/2021 12 :00:00 AM EDT eC1 ([facility]) 379.21 Vitreous Disorders Degeneration Vitreous Disorders Deg eneration Problem 05/30/2021 12:00:00 AM EDT MARV (Terrell Celis MD [facility]) 375.15 Dry Eye Syndrome Dry Eye Syndrome Problem 05/30/2021 12 :00:00 AM EDT MARV (Terrell Celis MD [facility]) 366.16 Cataract Senile Nuclear Cataract Senile Nuclear Proble m 05/30/2021 12:00:00 AM EDT MARV (Terrell Celis MD [facility]) [id number] Macular Degeneration Nonexudative Bilate ral Early Dry Stage Macular Degeneration Nonexudative Bilateral Early Dry Stage Problem 12:00:00 AM EDT MARV (Terrell Celis MD [facility]) H01.0 Blepharitis Blepharitis Problem 05/30/2021 12:00:00 AM EDT MARV (Terrell Celis MD [facility]) Z86.39 [id number] Personal history of other endocrine, nutritional and metabolic disease Problem 04/19/2021 12:00:00 AM EDT eCW1 ([facility]) Surgeries/Procedures Procedure Description Date Indications Data Source(s) No surgical / procedural history No surgical / procedural hi story 05/26/2021 12:00:00 AM EDT MARV (Terrell Celis MD [facility]) ARTHROCENTESIS ASPIR&/INJECTION MAJOR JT/BURSA 020 12:00:00 AM EST MEDENT ([facility]) Results ID Date Data Source [id number] 04/19/2021 10:40:00 AM [facility] Name Value Range Interpretation Code Description Data Florence rce(s) Supporting Document(s) FREE T4 1.1 ng/dL 0.76-1.46 [facility] ID Date Data Source [id number] 04/19/2021 10:40:00 AM EDT [facility] Name Value Range Interpretation Code Description Data Florence rce(s) Supporting Document(s) TSH 2.219 uIU/mL 0.360-3.740 [facility] ID Date Data Source [id number] 04/19/2021 10:40:00 AM EDT [facility] Name Value Range Interpretation Code Description Data Florence rce(s) Supporting Document(s) CHOLESTEROL 248 mg/dL 0-200 H [facility] TRIGLYCERIDES 75 mg/dL 0-150 [facility] LDL CHOLESTEROL 165 mg/dL 0-100 H [facility] HDL CHOLESTEROL 68 mg/dL 40-60 H [facility] CHOL/HDL RATIO 3.6 0.0-5.0 [facility] ID Date Data Source [id number] 04/19/2021 10:40:00 AM EDT [facility] Name Value Range Interpretation Code Description Data Florence rce(s) Supporting Document(s) GLUCOSE 105 mg/dL 74-106 [facility] BLOOD UREA NITROGEN 17 mg/dL 7-18 [facility] ital CREATININE 1.07 mg/dL 0.7-1.3 [facility] SODIUM 139 mmol/L 136-145 [facility] POTASSIUM 4.7 mmol/L 3.5-5.1 [facility] CHLORIDE 101 mmol/L 98-107 [facility] CO2 29 mmol/L 21-32 [facility] CALCIUM 9.0 mg/dL 8.5-10.1 [facility] ANION GAP 9.0 mmol/L 5-12 [facility] GLOMERULAR FILTRATION RATE 69 mL/min [facility] GFR IS CALCULATED IN mL/min/1.73m2 HOWARD L FUNCTION: >90MILDLY DECREASED: 60-89MILDY TO MODERATELY DECREASED: 45-59 MODERATELY TO SEVERELY DECREASED: 30-44SEVERELY DECREASED: 15-29RENAL FAILURE: <15 AST 16 U/L 15-37 [facility] ALT 27 U/L 12-78 [facility] ALKALINE PHOSPHATASE 68 U/L 46-116 [facility] TOTAL BILIRUBIN 0.6 mg/dL 0.2-1.0 [facility] TOTAL PROTEIN 7.1 g/dl 6.4-8.2 [facility] ALBUMIN 3.9 gm/dL 3.4-5.0 [facility] ID Date Data Source [id number] 04/19/2021 10:20:00 AM EDT [facility] Name Value Range Interpretation Code Description Data Florence rce(s) Supporting Document(s) HGBA1C 5.5 % 3.8-5.6 [facility] Diabetic > or = to 6.5%Prediabetes 5.7-6 .4%Normal <5.7 ESTIMATED AVERAGE GLUCOSE 111.2 mg/dL [facility] ID Date Data Source [id number] 04/19/2021 09:57:00 AM [facility] Name Value Range Interpretation Code Description Data Florence rce(s) Supporting Document(s) WHITE BLOOD COUNT 5.0 K/mm3 4.0-10.0 [facility] al RED BLOOD COUNT 4.75 M/mm3 4.50-6.00 [facility] HEMOGLOBIN 14.2 gm/dL 14.0-18.0 [facility] HEMATOCRIT 41.9 % 42.0-54.0 [facility] MEAN CELL VOLUME 88.2 fl 80-96 [facility] MEAN CORPUSCULAR HEMOGLOBIN 29.9 pg 27.0-31.0 [facility] MEAN CORPUSCULAR HGB CONC 33.9 g/dl 32.0-36.0 [facility] RED CELL DISTRIBUTION WIDTH 12.1 % 10.0-14.5 [facility] PLATELET COUNT 201 K/mm3 172-450 [facility] MEAN PLATELET VOLUME 9.2 fl 9.0-13.[address] [facility] pital GRAN % 52.1 % 50-80.0 [facility] IG% 0.2 % 0.0-0.2 [facility] LYMPH % 34.3 % 25.0-50.0 [facility] MONO % 9.6 % 2.0-10.0 [facility] EOS % 3.0 % 0-5.0 [facility] BASO % 0.8 % 0.0-2.0 [facility] GRAN # 2.6 K/mm3 2.0-8.00 [facility] IG# 0.0 K/mm3 0.0-0.2 [facility] LYMPH # 1.7 K/mm3 1.0-5.0 [facility] MONO # 0.5 K/mm3 0.10-1.20 [facility] EOS # 0.2 K/mm3 0.0-0.5 [facility] BASO # 0.0 K/mm3 0.0-0.2 [facility] ID Date Data Source FREE T4 04/19/2021 12:00:00 AM EDT eCW1 ([facility]) Name Value Range Interpretation Code Description Data Florence rce(s) Supporting Document(s) 1.1 0.76-1.46 FREE T4 eCW1 ([facility]) ID Date Data Source HGBA1C 04/19/2021 12:00:00 AM EDT eCW1 ([facility]) Name Value Range Interpretation Code Description Data Florence rce(s) Supporting Document(s) 5.8 4.5-6.2 HGBA1C eCW1 ([facility]) 111.2 ESTIMATED AVERAGE GLUCOSE eCW1 ([facility]) Hemoglobin A1c/Hemoglobin.total in Blood 5.5 3.8-5.6 HGBA1C eCW1 ([facility]) ID Date Data Source COMPLETE METABOLIC PROLFILE 04/19/2021 12:00:00 AM EDT eCW1 ([facility]) Name Value Range Interpretation Code Description Data Florence rce(s) Supporting Document(s) 105 74-106 GLUCOSE eCW1 ([facility]) 1.07 0.7-1.3 CREATININE eCW1 ([facility]) 17 7-18 BLOOD UREA NITROGEN eCW1 ([facility]) 101 98-107 CHLORIDE eCW1 ([facility]) 139 136-145 SODIUM eCW1 ([facility]) 4.7 3.5-5.1 POTASSIUM eCW1 ([facility]) 29 21-32 CO2 eCW1 ([facility]) 9.0 5-12 ANION GAP eCW1 ([facility]) 9.0 8.5-10.1 CALCIUM eCW1 ([facility]) 69 GLOMERULAR FILTRATION RAT E eCW1 ([facility]) 27 12-78 ALT eCW1 ([facility]) 68 46-116 ALKALINE PHOSPHATASE eCW1 ([facility]) 16 15-37 AST eCW1 ([facility]) 0.6 0.2-1.0 TOTAL BILIRUBIN eCW1 ([facility]) 7.1 6.4-8.2 TOTAL PROTEIN eCW1 ([facility]) 3.9 3.4-5.0 ALBUMIN eCW1 ([facility]) ID Date Data Source CBC W/DIFF 04/19/2021 12:00:00 AM EDT eCW1 ([facility]) Name Value Range Interpretation Code Description Data Florence rce(s) Supporting Document(s) 5.0 4.0-10.0 WHITE BLOOD COUNT eCW1 ([facility]) 41.9 42.0-54.0 HEMATOCRIT eCW1 ([facility]) 4.75 4.50-6.00 RED BLOOD COUNT eCW1 ([facility]) 14.2 14.0-18.0 HEMOGLOBIN eCW1 ([facility]) 33.9 32.0-36.0 MEAN CORPUSCULAR HGB CONC eCW1 ([facility]) 88.2 80-96 MEAN CELL VOLUME eCW1 ([facility]) 29.9 27.0-31.0 MEAN CORPUSCULAR HEMOGLOB IN eCW1 ([facility]) 9.2 9.0-13.0 MEAN PLATELET VOLUME eCW1 ([facility]) 12.1 10.0-14.5 RED CELL DISTRIBUTION WID TH eCW1 ([facility]) 201 172-450 PLATELET COUNT eCW1 ([facility]) 52.1 50-80.0 GRAN % eCW1 ([facility]) 34.3 25.0-50.0 LYMPH % eCW1 ([facility]) 9.6 2.0-10.0 MONO % eCW1 ([facility]) 3.0 0-5.0 EOS % eCW1 ([facility]) 1.7 1.0-5.0 LYMPH # eCW1 ([facility]) 0.8 0.0-2.0 BASO % eCW1 ([facility]) 2.6 2.0-8.00 GRAN # eCW1 ([facility]) 0.5 0.10-1.20 MONO # eCW1 ([facility]) 0.2 0.0-0.5 EOS # eCW1 ([facility]) 0.0 0.0-0.2 BASO # eCW1 ([facility]) ID Date Data Source LIPID PROFILE 04/19/2021 12:00:00 AM EDT eCW1 ([facility]) Name Value Range Interpretation Code Description Data Florence rce(s) Supporting Document(s) Cholesterol in LDL [Mass/volume] in Serum or Plasma by calculation 165 0-100 LDL CHOLESTEROL eCW1 ([facility]) 75 0-150 TRIGLYCERIDES eCW1 ([facility]) 248 0-200 CHOLESTEROL eCW1 ([facility]) 68 40-60 HDL CHOLESTEROL eCW1 ([facility]) 3.6 0.0-5.0 CHOL/HDL RATIO eCW1 ([facility]) Procedure Social History Code Duration Value Status Description Data Source(s ) Smoking 08/24/2021 12:00:00 AM EDT Never Smoker completed Never S moker eCW1 ([facility]) Smoking 05/30/2021 09:00:45 AM EDT Never smoked tobacco (findi ng) completed Never smoked tobacco (finding) MARV (Terrell Celis MD [facility]) Smoking 04/19/2021 12:00:00 AM EDT Never Smoker completed Never S moker eCW1 ([facility]) Smoking 04/19/2021 12:00:00 AM EDT Never Smoker completed Never S moker eCW1 ([facility]) Smoking 04/19/2021 12:00:00 AM EDT Never Smoker completed Never S moker eCW1 ([facility]) Vital Signs ID Date Data Source UNK Name Value Range Interpretation Code Description Data Source(s) Body height 72 [in_i] 72 [in_i] eCW1 ([facility]) Body weight 224 [lb_av] 224 [lb_av] eCW1 ([facility]) Body mass index (BMI) [Ratio] 30.38 kg/m2 30.38 kg/m2 eCW1 ([facility]) Body temperature 98.2 [degF] 98.2 [degF] eCW1 ( [facility]) Heart rate 73 /min 73 /min eCW1 ([facility]) Respiratory rate 18 /min 18 /min eCW1 ([facility]) Oxygen saturation in Arterial blood by Pulse oximetry 98 % 98 % eCW1 ([facility]) Body height 72 [in_i] 72 [in_i] eCW1 ([facility]) Body weight 225.4 [lb_av] 225.4 [lb_av] eCW1 ([facility]) Body mass index (BMI) [Ratio] 30.57 kg/m2 30.57 kg/m2 eCW1 ([facility]) Body temperature 98.4 [degF] 98.4 [degF] eCW1 ( [facility]) Heart rate 67 /min 67 /min eCW1 ([facility]) Respiratory rate 18 /min 18 /min eCW1 ([facility]) Oxygen saturation in Arterial blood by Pulse oximetry 98 % 98 % eCW1 ([facility]) Patient Treatment Plan of Care Planned Activity Planned Date Details Description Data Source (s) Pravastatin Sodium 80 MG Oral Tablet 04/26/2021 12:00:00 AM EDT eCW1 ([facility]) Pravastatin Sodium 80 MG Oral Tablet 04/26/2021 12:00:00 AM EDT eCW1 ([facility]) Pravastatin Sodium 80 MG Oral Tablet 04/26/2021 12:00:00 AM EDT eCW1 ([facility]) Shingrix 50 MCG/0.5ML 04/19/2021 12:00:00 AM EDT eCW1 ([facility]) Shingrix 50 MCG/0.5ML 04/19/2021 12:00:00 AM EDT eCW1 ([facility]) Shingrix 50 MCG/0.5ML 04/19/2021 12:00:00 AM EDT eCW1 ([facility])
[2021-09-15] MEDS: TETRACAINE 0.5% OPHTH SOLN 4ML OD SCH ×2 (09:21→11:42)
[2021-09-15 12:35] VITALS: BP 121/64
--- NOTE | 2021-09-15 15:22 | ROOPDOC ---
[facility] Report Of Operation Report of Operation DATE OF PROCEDURE: 09/15/21 PREPROCEDURE DIAGNOSES: Cataract right eye. POSTPROCEDURE DIAGNOSES: Same. PROCEDURE PERFORMED: Cataract extraction with intraocular lens implantation right eye. SURGEON: Valeriano Wallace MD TELEMETRY REGISTERED NURSE: None ANESTHESIA: Local. ESTIMATED BLOOD LOSS: None. COMPLICATIONS: None. SPECIMENS REMOVED: None DESCRIPTION OF PROCEDURE: The patient was brought to the operating room and prepped and draped in the usual sterile fashion and an eyelid speculum was inserted in the right eye. A paracentesis was made and the anterior chamber was inflated with non-preserved lidocaine. This was followed by injection of Viscoat. A groove was made in the temporal clear cornea which was tunneled forward with the crescent blade and the anterior chamber was entered with a 2.75 keratome. The cystotome was used to make an incision in the center of the capsule and a continuous curvilinear capsulorhexis was created. The lens was hydrodissected until it was found to rotate freely within the capsular bag. Phacoemulsification was then used to remove the lens in its entirety. Irrigation and aspiration were used to remove residual cortical material. The anterior chamber and capsular bag were reinflated with Provisc and a 20.5 diopter [id number] lens was injected into the capsular bag using the Orchard injector. The lens was dialed into place using the Sinskey hook. Irrigation and aspiration were used to remove residual viscoelastic. The wound was stromally hydrated until was found to be watertight and the eye was in an appropriate pressure. The eyelid speculum was removed from the eye and Maxitrol drops were placed over the right eye. The patient was transferred to the recovery room in stable condition and will follow up tomorrow. The total CDE was 12.13. VALERIANO WALLACE MD Sep 15, 2021 15:22
== END 2021-09-15 12:40 | disposition home or self-care (01) ==
LOC: M SDC 07:57
PROVIDERS: ATTEND Ophthalmology
DX: H25.11 Age-related nuclear cataract, right eye (principal); I10 Essential (primary) hypertension; E78.5 Hyperlipidemia, unspecified; Z79.899 Other long term (current) drug therapy
CPT/HCPCS: 66984; J2250; J3010; V2632

== ENCOUNTER → 2022-08-05 | Outpatient (CLI) | payer MEDICARE ==
[~2022-08-05] MED LIST changes: -CYCLOPENTOLATE 1% OPHTH SOLN 2 ML BTL OD SCH; -DUOVISC (0.50ML VISCOAT/0.85ML PROVISC) OPHTH KIT As Ordered ONE; -FLURBIPROFEN 0.03% OPHTH SOLN 2.5 ML OD SCH; -LIDOCAINE 1% SDV 5ML VIAL As Ordered ONE; -LR 1,000 ML IV SCH; -MAXITROL OPHTH SUSP 5 ML As Ordered ONE; -MIDAZOLAM INJ 2MG/2ML VIAL (J2250 PER 1MG) As Ordered ONE; -PHENYLEPHRINE 2.5% OPHTH SOL 2ML OD SCH; -UNRESOLVED CLARIFICATION ENTRY XX SCH; -fentaNYL 100 MCG/2 ML INJECTION (J3010) As Ordered ONE
== END ==
LOC: M RAD 14:31
PROVIDERS: ATTEND Physician Assistant Medical
DX: M51.26 Other intervertebral disc displacement, lumbar region (principal); M47.816 Spondylosis without myelopathy or radiculopathy, lumbar region

== ENCOUNTER → 2023-08-07 | Outpatient (REF) | payer MEDICARE ==
[2023-08-08 10:46] LABS: BASO % 0.5 % (0.0-1.0); EOS # 0.1 10^3/uL (0.0-0.5); EOS % 1.7 % (0.0-3.0); HEMATOCRIT 43.3 % (42.0-52.0); HEMOGLOBIN 14.3 g/dl (13.5-17.5); LYMPH % 26.9 % (24.0-44.0); MEAN CORPUSCULAR HEMOGLOBIN 30.3 pg (27.0-33.0); MEAN CORPUSCULAR VOLUME 91.7 fl (80.0-96.0); MONO # 0.6 10^3/uL (0.0-0.8); MONO % 8.5 % (2.0-8.0); NEUTROPHILS # 4.7 10^3/uL (1.5-8.5); NEUTROPHILS % 61.9 % (36.0-66.0); PLATELET COUNT, AUTOMATED 241 10^3/uL (150-450); RED BLOOD COUNT 4.72 10^6/uL (4.30-6.10); WHITE BLOOD COUNT 7.5 10^3/uL (4.0-10.0)
[2023-08-08 11:10] LABS: ERYTHROCYTE SEDIMENTATION RATE 13 mm/hr (0-20)
[2023-08-08 11:21] LABS: C REACTIVE PROTEIN QUANTITATIV < 0.40 MG/DL (<1.0)
[2023-08-08 11:22] LABS: BLOOD UREA NITROGEN 17 MG/DL (9-23); CARBON DIOXIDE LEVEL 28 MMOL/L (20-31); CHLORIDE LEVEL 103 MMOL/L (98-107); CREATININE FOR GFR 0.97 MG/DL (0.70-1.30); GLOMERULAR FILTRATION RATE > 60.0 (>42); GLUCOSE, FASTING 101 MG/DL (74-106); POTASSIUM SERUM 5.3 MMOL/L (3.5-5.1); SODIUM LEVEL 138 MMOL/L (136-145)
[2023-08-09 12:08] LABS: ANTINUCLEAR ANTIBODIES DIRECT Negative (Negative)
[2023-08-09 15:25] LABS: URIC ACID 7.3 MG/DL (3.7-9.2)
[2023-08-09 15:29] LABS: RHEUMATOID FACTOR QUANT 4.8 IU/ML (<14)
== END ==
LOC: M PLALAB 10:06
PROVIDERS: ATTEND Student in an Organized Health Care Education/Training Program
DX: M79.674 Pain in right toe(s) (principal)

== ENCOUNTER → 2024-06-13 | Outpatient (CLI) | payer MEDICARE | LOC: M PLARAD 09:09 | PROVIDERS: ATTEND Physician Assistant Medical | DX: M51.36 Other intervertebral disc degeneration, lumbar region (principal); M48.061 Spinal stenosis, lumbar region without neurogenic claudication; Z98.890 Other specified postprocedural states; R20.2 Paresthesia of skin; M47.816 Spondylosis without myelopathy or radiculopathy, lumbar region ==